=== PATIENT | female | born 1960 | race Caucasian/White ===

== ENCOUNTER → 2018-12-27 | Outpatient (CLI) | payer OTHER ==
--- NOTE | 2018-12-27 14:34 | MR ---
EXAMINATION TYPE: MR brain wo/w con DATE OF EXAM: 12/27/2018 2:17 PM COMPARISON: NONE HISTORY: Diplopia CONTRAST: Patient received 7 mL intravenous Gadavist gadolinium contrast. Multiplanar and multispin-echo imaging of the brain was performed . Pre and post contrast enhanced i mages are obtained. The ventricles, basal cisterns and sulci overlying the cerebral convexities are mildly enlarged. There is evidence of mild periventricular white matter ischemic demyelination. Remote deep white matter insults are also noted. No acute edema is seen on diffusion weighted imaging. There is no evidence for midline shift or mass effect. Acute intracranial hemorrhage or extra-axial collection is not evident. No enhancing lesions are seen. The paranasal sinuses and mastoid air cells are well-aerated. IMPRESSION: Age-related atrophic and chronic small vessel ischemic change. No acute intracranial process at this time. No enhancing lesions are seen.
== END | disposition home or self-care (01) ==
LOC: RADMRIMAIN 13:25
PROVIDERS: ATTEND Family Medicine
DX: G31.1 Senile degeneration of brain, not elsewhere classified (principal); I67.82 Cerebral ischemia
CPT/HCPCS: 70553; A9585

== ENCOUNTER → 2020-01-16 | Outpatient (CLI) | payer OTHER ==
--- NOTE | 2020-01-16 15:46 | BMR ---
EXAMINATION TYPE: MR breast BILAT wo/w con DATE OF EXAM: 01/16/2020 COMPARISON: NONE HISTORY: Lt breast saline implant deflation abnormal physical exam. History of breast implants placed 25 years ago. CONTRAST: Multiplanar, multisequence images of the breasts were acquired utilizing 7 mL intravenous Gadavist ga dolinium contrast. TECHNIQUE: A series of fat and water weighted images in the long and short axis views of both breasts are obtained in conjunction with dynamic contrast MRI with subtraction technique. Three-dimensional and additional postprocessing imaging is created on independent workstation and reviewed during [facility] interpretation of this study. FINDINGS: There is overall fairly symmetric sized of both breasts. There is scattered fibroglandular tissue bilaterally. There are subglandular bilateral implants. As suspected clinically the left breast implant shows abno rmal infolding and/or collapse. There is abnormal lobulation of the outer contour versus opposite rig ht side. Some saline noted outside the capsule in the left breast. Slight lobulation in the right fracisco ast implant is seen without abnormal infolding or collapse. T2-weighted images show no suspicious axillary adenopathy. Benign subcentimeter lymph nodes are prese nt bilaterally. There is no significant cystic change in either breast. T1-weighted images show no brooks spicious fat containing masses. Dynamic delayed postcontrast imaging shows no suspicious internal michael desiree adenopathy. There is no suspicious skin thickening seen bilaterally. No enhancing masses or pathologic enhancemen t is present. The chest wall is intact bilaterally. IMPRESSION: MRI confirmation of suspected left breast implant rupture as detailed above.
== END | disposition home or self-care (01) ==
LOC: RADMRIMAIN 14:16
PROVIDERS: ATTEND Family Medicine
DX: T85.9XXA Unspecified complication of internal prosthetic device, implant and graft, initial encounter (principal)
CPT/HCPCS: C8937; C8908; A9585; 77049

== ENCOUNTER → 2020-01-28 | Outpatient (CLI) | payer OTHER ==
[2020-01-28 14:21] VITALS: BP 159/84; PULSE 93; RESP 20; TEMP 97.7
--- NOTE | 2020-01-28 15:31 | P.GSHP ---
History of Present Illness H&P Date: 01/28/20 Chief Complaint: ruptured left breast implant Jacquie is a 59 year old white female seen for DR Bourgeois who had bilateral prepectoral saline implants in her breast placed approximately 24 years ago. Recently the left breast implant has been getting softer and an MRI of both breasts was performed. The MRI revealed findings consistent with suspected left breast implant rupture. No rupture of the right breast implant was noted. The patient has not had a bilateral mammogram for many years. The MRI however did not show any findings suspicious for cancer in either breast and was felt to be adequate as per radiology for breast evaluation. She does complain of some left chest wall/breast tenderness. She is not complaining of any nipple discharge or skin changes. She has not had any history of recent trauma or infection in her breast. Caffeine: Minimal Nicotine: Half a pack per day for 45 years Theophylline: weekly Familiy History: no cancer Hormonal History: menarche: 16 , breast fed: no, age at first : 20 menopause: complete hysterectomy at 33, done for irregular bleeding BCP: 15 years hormones: estrogen 10 years Surgical History: total hysterectomy C-sections two appendectomy Medcial History: trigeminal neurolgia anxiety/depression (sees a psychiatrist) arthritis hypothyroid Social History: nicotine: 1/2 PPD alcohol: none drugs: Marijuana occasionally - Constitutional Constitutional: Denies chills, Denies fever - EENT Comment: needs glasses Ears: bilateral: decreased hearing (? decreased), deny: tinnitus Ears, nose, mouth and throat: Denies headache, Denies sore throat - Breasts Breasts: bilateral: as per HPI - Cardiovascular Comment: Borderline hypertension - Respiratory Respiratory: Denies cough, Denies 7 - Gastrointestinal Gastrointestinal: Denies abdominal pain, Denies diarrhea, Denies nausea, Denies vomiting - Genitourinary (Female) Genitourinary: Denies dysuria, Denies hematuria - Menstruation Menstruation: Reports post hysterectomy - Musculoskeletal Comment: arthritis - Integumentary Integumentary: Denies pruritus, Denies rash - Neurological Neurological: Denies numbness, Denies weakness - Psychiatric Psychiatric: Reports anxiety, Reports depression - Endocrine Comment: hypothyroid - Hematologic/Lymphatic Comment: none - Allergic/Immunologic Allergic/Immunologic: Reports as per HPI Past Medical History History of Any Multi-Drug Resistant Organisms: None Reported Smoking Status: Current every day smoker Medications and Allergies Home Medications Medication Instructions Recorded Confirmed Type Baclofen 10 mg PO TID 01/28/20 01/28/20 History DULoxetine HCL [Cymbalta] 60 mg PO DAILY 01/28/20 01/28/20 History Naproxen 250 mg PO DAILY 01/28/20 01/28/20 History OXcarbazepine [Trileptal] 300 mg PO BID 01/28/20 01/28/20 History [place]-3/Dha/Epa/Fish Oil [Fish Oil 1 each PO HS 01/28/20 01/28/20 History 500 mg Softgel] Thyroid,Pork [[place] Thyroid] 60 mg PO DAILY 01/28/20 01/28/20 History Tofacitinib Citrate [Xeljanz] 10 mg PO DAILY 01/28/20 01/28/20 History buPROPion HCL [buPROPion HCL ER] 300 mg PO DAILY 01/28/20 01/28/20 History busPIRone HCL 10 mg PO DAILY 01/28/20 01/28/20 History clonazePAM 1 mg PO BID 01/28/20 01/28/20 History lamoTRIgine [LaMICtal] 25 mg PO DAILY 01/28/20 01/28/20 History traZODone HCL 100 mg PO DAILY 01/28/20 01/28/20 History Allergies Allergy/AdvReac Type Severity Reaction Status Date / Time codeine Allergy Vomiting Unverified 01/28/20 14:15 Penicillins Allergy Vomiting Unverified 01/28/20 14:15 strawberry Allergy Swelling Unverified 01/28/20 14:15 Surgical - Exam Vital Signs Temp Pulse Resp BP Pulse Ox 97.7 F 93 20 159/84 96 01/28/20 14:16 01/28/20 14:16 01/28/20 14:16 01/28/20 14:16 01/28/20 14:16 BMI 25.6 - General well developed, well nourished, no distress - Eyes normal ocular movement - ENT no hearing loss, no congestion - Neck no masses, trachea midline - Respiratory normal respiratory effort, clear to auscultation - Cardiovascular Heart Sounds: normal: S1, S2 - Abdomen Abdomen: soft, non tender, no guarding, no rigid, no rebound - Integumentary normal turgor - Neurologic no disoriented, no combative - Musculoskeletal normal gait - Psychiatric oriented to time, oriented to person, oriented to place, speech is normal, memory intact breast: BRA 36C on the right; smaller on the left inspection: left breast smaller than the right breast Operation: Right breast: Implant in place question capsular contraction, no dominant masses or nodules of concern in the breast Right axilla: Positive adenopathy approximately 1 cm in size appears to be shotty Left breast: Smaller than right breast, implant rupture, no dominant masses or nodules of concern Left axilla: No adenopathy of concern Results MRI of the breast reviewed with radiology/ruptured left breast implant, no parenchymal disease of concern identified in either breast Assessment and Plan Assessment: Impression: trigeminal neurolgia anxiety/depression (sees a psychiatrist) arthritis hypothyroid ruptured left breast implant ( pre-pectoral implants noted on MRI) Plan: 1. patient wishes bilateral implants to be removed 2. Medical management of medical conditions Risks and benefits of procedure discussed with the patient. She wishes to proceed. CC: Dr. Bourgeois encounter 50 minutes, > 50% of time in planning and counselling
== END | disposition home or self-care (01) ==
LOC: WWCWWP 14:06
PROVIDERS: ATTEND Surgery
DX: Z53.9 Procedure and treatment not carried out, unspecified reason (principal)

== ENCOUNTER → 2020-04-15 | Outpatient (CLI) | payer OTHER ==
[2020-04-15 15:12] VITALS: BP 175/92; PULSE 83; RESP 16; TEMP 97.9
--- NOTE | 2020-04-15 15:49 | P.PN ---
Subjective Progress Note Date: 04/15/20 Principal diagnosis: ruptured left breast implant Jacquie is a 59 year old white female seen for DR Bourgeois who had bilateral prepectoral saline implants in her breast placed approximately 24 years ago. Recently the left breast implant has been getting softer and an MRI of both breasts was performed. The MRI revealed findings consistent with suspected left breast implant rupture. No rupture of the right breast implant was noted. The patient has not had a bilateral mammogram for many years. The MRI however did not show any findings suspicious for cancer in either breast and was felt to be adequate as per radiology for breast evaluation. She does complain of some left chest wall/breast tenderness. She is not complaining of any nipple discharge or skin changes. She has not had any history of recent trauma or infection in her breast. Caffeine: Minimal Nicotine: Half a pack per day for 45 years Theophylline: weekly Familiy History: no cancer Hormonal History: menarche: 16 , breast fed: no, age at first : 20 menopause: complete hysterectomy at 33, done for irregular bleeding BCP: 15 years hormones: estrogen 10 years Surgical History: total hysterectomy C-sections two appendectomy Medcial History: trigeminal neurolgia anxiety/depression (sees a psychiatrist) arthritis hypothyroid HTN Social History: nicotine: 1/2 PPD alcohol: none drugs: Marijuana occasionally - Constitutional Constitutional: Denies chills, Denies fever - EENT Comment: needs glasses Ears: bilateral: decreased hearing (? decreased), deny: tinnitus Ears, nose, mouth and throat: Denies headache, Denies sore throat - Breasts Breasts: bilateral: as per HPI - Cardiovascular Comment: Borderline hypertension - Respiratory Respiratory: Denies cough - Gastrointestinal Gastrointestinal: Denies abdominal pain, Denies diarrhea, Denies nausea, Denies vomiting - Genitourinary (Female) Genitourinary: Denies dysuria, Denies hematuria - Menstruation Menstruation: Reports post hysterectomy - Musculoskeletal Comment: arthritis - Integumentary Integumentary: Denies pruritus, Denies rash - Neurological Neurological: Denies numbness, Denies weakness - Psychiatric Psychiatric: Reports anxiety, Reports depression - Endocrine Comment: hypothyroid - Hematologic/Lymphatic Comment: none - Allergic/Immunologic Allergic/Immunologic: Reports as per HPI Objective - Vital Signs Vital signs: Vital Signs Temp 97.9 F 11/05/20 15:07 Pulse 83 04/15/20 15:07 Resp 16 04/15/20 15:07 BP 175/92 04/15/20 15:07 Pulse Ox 96 04/15/20 15:07 Intake & Output 04/14/20 04/15/20 04/15/20 18:59 06:59 18:59 Weight 65.771 kg - Exam BMI 25.7 - Constitutional General appearance: Present: average body habitus - EENT Eyes: Present: EOMI ENT: Present: hearing grossly normal - Neck Neck: Present: normal ROM - Respiratory Respiratory: bilateral: CTA - Cardiovascular Rhythm: regular Heart sounds: normal: S1, S2 - Gastrointestinal General gastrointestinal: Present: normal bowel sounds, soft - Integumentary Integumentary: Present: normal turgor - Musculoskeletal Musculoskeletal: Present: gait normal - Psychiatric Psychiatric: Present: A&O x's 3, appropriate affect, intact judgment & insight - Additional findings Additional findings: Breast exam: BRA: 36C on the right, left smaller inspection: left breast smaller than the right palpation right breast:implant in place question of capsular contraction right axilla: shotty adenopathy left breast: implant rupture, no dominate masses or nodules of concern left axilla: no adenopathy of concern Assessment and Plan Assessment: Impression: trigeminal neurolgia anxiety/depression arthritis hypothyroid ruptured left breast implant Plan: 1. removal of bilateral implants 2. medical clearance 3. stop smoking prior to procedure 4. Clearance from Dr. Vela We have discussed her seeing a plastic surgeon and she declined at this time. She is not interested in having implants replaced at this time. She understands that she will have loss of volume and still wishes that these be removed. She understands the risk and benefits and wishes to proceed. Risks include but are not limited to bleeding, infection, reaction to the anesthetic. CC: Dr. Bourgeois encounter 30 minutes, > 50% of time in planning and counselling
== END | disposition home or self-care (01) ==
LOC: WWCWWP 14:41
PROVIDERS: ATTEND Surgery
DX: Z53.9 Procedure and treatment not carried out, unspecified reason (principal)

== ENCOUNTER 2020-05-18 10:20 | Day surgery (SDC) | payer OTHER ==
[2020-05-14 14:25] VITALS: BMI 24.7
--- NOTE | 2020-05-14 15:41 | P.PN ---
Subjective Progress Note Date: 05/14/20 Principal diagnosis: Ruptured left breast implant ruptured left breast implant Jacquie is a 59 year old white female seen for DR Bourgeois who had bilateral prepectoral saline implants in her breast placed approximately 24 years ago. Recently the left breast implant has been getting softer and an MRI of both breasts was performed. The MRI revealed findings consistent with suspected left breast implant rupture. No rupture of the right breast implant was noted. The patient has not had a bilateral mammogram for many years. The MRI however did not show any findings suspicious for cancer in either breast and was felt to be adequate as per radiology for breast evaluation. She does complain of some left chest wall/breast tenderness. She is not complaining of any nipple discharge or skin changes. She has not had any history of recent trauma or infection in her breast. Caffeine: Minimal Nicotine: Half a pack per day for 45 years Theophylline: weekly Familiy History: no cancer Hormonal History: menarche: 16 , breast fed: no, age at first : 20 menopause: complete hysterectomy at 33, done for irregular bleeding BCP: 15 years hormones: estrogen 10 years Surgical History: total hysterectomy C-sections two appendectomy Medcial History: trigeminal neurolgia anxiety/depression (sees a psychiatrist) arthritis hypothyroid HTN Social History: nicotine: 1/2 PPD alcohol: none drugs: Marijuana occasionally - Constitutional Constitutional: Denies chills, Denies fever - EENT Comment: needs glasses Ears: bilateral: decreased hearing (? decreased), deny: tinnitus Ears, nose, mouth and throat: Denies headache, Denies sore throat - Breasts Breasts: bilateral: as per HPI - Cardiovascular Comment: Borderline hypertension - Respiratory Respiratory: Denies cough - Gastrointestinal Gastrointestinal: Denies abdominal pain, Denies diarrhea, Denies nausea, Denies vomiting - Genitourinary (Female) Genitourinary: Denies dysuria, Denies hematuria - Menstruation Menstruation: Reports post hysterectomy - Musculoskeletal Comment: arthritis - Integumentary Integumentary: Denies pruritus, Denies rash - Neurological Neurological: Denies numbness, Denies weakness - Psychiatric Psychiatric: Reports anxiety, Reports depression - Endocrine Comment: hypothyroid - Hematologic/Lymphatic Comment: none - Allergic/Immunologic Allergic/Immunologic: Reports as per HPI Objective - Vital Signs Vital signs: Intake & Output 05/13/20 05/14/20 05/14/20 18:59 06:59 18:59 Weight 63.503 kg - Exam BMI 24.8 - Constitutional General appearance: Present: average body habitus - EENT Eyes: Present: EOMI ENT: Present: hearing grossly normal - Neck Neck: Present: normal ROM - Respiratory Respiratory: bilateral: CTA - Cardiovascular Rhythm: regular Heart sounds: normal: S1, S2 - Gastrointestinal General gastrointestinal: Present: soft - Integumentary Integumentary: Present: normal turgor - Musculoskeletal Musculoskeletal: Present: gait normal - Psychiatric Psychiatric: Present: A&O x's 3, appropriate affect, intact judgment & insight - Additional findings Additional findings: breast exam: Prior: 30 6C on the right, left smaller Inspection: Left breast smaller than right Palpation: Right breast: Implant in place question of capsular contraction Right axilla: Shoddy adenopathy Left breast: Implant rupture no dominant masses or nodules of concern Left axilla: No adenopathy of concern Assessment and Plan Assessment: Impression: 1. Right abdominal neuralgia Anxiety/depression Arthritis Hypothyroid Ruptured left breast implant Plan: 1. Removal of bilateral implants 2. Medical clearance 3. Stop smoking prior to procedure 4. Clearance from Dr. Vela We have discussed her seeing a plastic surgeon and she declined at this time. She is not interested in having implants replaced at this time. She understands she will of loss of volume and still wishes to have these removed. She understands the risks and benefits and wishes to proceed. Risks include but are not limited to bleeding, infection, reaction to the anesthetic. Cc: Dr. Bourgeois
[~2020-05-18 10:20] MED LIST: DEXAMETHASONE SOD PHOSPHATE 4 MG/ML 1 ML VIAL IV ONE; LACTATED RINGERS 1,000 ML IV SCH; LIDOCAINE 1% (10MG/ML) FOR IV START INTRADERMA PRN; ONDANSETRON 4 MG/2 ML VIAL IVP ONE; SCOPOLAMINE 1.5MG/72HR PATCH TRANSDERM ONE
[2020-05-18] MEDS ORDERED: MIDAZOLAM 2 MG/2 ML VIAL IVP ONE (12:10)
[2020-05-18] MEDS ORDERED: MIDAZOLAM 2 MG/2 ML VIAL ONE (12:34)
[2020-05-18] MEDS ORDERED: ePHEDrine SULFATE/0.9% NACL/PF 50 MG/5 ML SYRINGE IV ONE (12:34)
[2020-05-18] MEDS ORDERED: PROPOFOL 10 MG/ML 20 ML VIAL IV ONE (12:34)
[2020-05-18] MEDS ORDERED: HYDROmorphone (PF) 1 MG/ML ONE (12:34)
[2020-05-18] MEDS ORDERED: LIDOCAINE 1% INJ 10MG/ML (20 ML MDV) ONE (12:34)
[2020-05-18] MEDS ORDERED: ROCURONIUM 10 MG/ML (10 ML VIAL) IV ONE (12:34)
[2020-05-18] MEDS ORDERED: HEPARIN SODIUM,PORCINE 5,000 UNIT/ML 1 ML VIAL ONE (12:34)
[2020-05-18] MEDS ORDERED: fentaNYL (PF) 50 MCG/ML 2 ML AMP ONE (12:34)
[2020-05-18] MEDS ORDERED: SUCCINYLCHOLINE CHLORIDE 100 MG/5 ML SYR IV ONE (12:34)
[2020-05-18] MEDS ORDERED: SODIUM CHLORIDE 0.9% 50 ML with CLINDAMYCIN 600 MG IV ONE ×2 (12:36)
--- NOTE | 2020-05-18 14:12 | P.OP ---
Date of Procedure: 05/18/20 Preoperative Diagnosis: Ruptured left breast prepectoral implant, capsular contraction right breast prepectoral implant Postoperative Diagnosis: Same Procedure(s) Performed: removal of Bilateral prepectoral breast implants and capsules; each one approximately 9 x 6 cm in size Anesthesia: VICKY Surgeon: Rocío Malagon Estimated Blood Loss (ml): 20 IV fluids (ml): 400 Pathology: other (Bilateral breast implants and capsules) Condition: stable Disposition: same day Indications for Procedure: Ruptured left breast implant, capsule formation right breast implant with pain Operative Findings: Ruptured left breast implant, capsule present, contraction right breast implant with calcified capsules bilaterally Description of Procedure: Jacquie is a 59-year-old white female who presented with a ruptured left breast prepectoral implant and painful contracture of a right breast implant. The implants were approximately 25-30 years old. The patient wished to have the implants removed. Risks and benefits of the procedure were discussed with the patient she understood and wished to proceed. She did not want new implants placed. The patient was taken to the operating room and following induction of anesthesia the left breast and right breast were prepped and draped in a sterile fashion. The left breast was approached initially. An incision was made just above the inframammary ridge. This was approximately 6 cm in size. Dissection was performed through the subcutaneous tissue and breast tissue to the implant on the left side. The capsule was identified and dissection was performed around the capsule. It was prepectoral however, there were extensive adhesions between the capsule and the pectoralis muscle. These were taken down using electrocautery device as well as the Harmonic scalpel. The capsule and implant were completely dissected free and removed. The implant was approximately 9 x 6 cm. Following this the cavity was well irrigated. Surgicel in powder form was placed after we determined there was no active bleeding. A LO drain was placed. The subcutaneous tissues were closed using 3-0 Vicryl suture, the skin was closed using a 4-0 Monocryl, Steri-Strips were applied. The right breast was approached in similar fashion. A 6 cm incision at the inframammary ridge was performed. This was dissected onto the capsule of the implant. This was carefully dissected away from adhesions on the pectoralis muscle and breas tissue surrounding the Capsule. After this had been dissected free the implant was extruded. The implant size was approximately 9 x 6 cm. The capsule was removed with the implant. The capsule was calcified. The wound was well irrigated. After we assured that hemostasis was attained Surgicel in powder form was placed. A LO drain was placed and secured using a nylon suture. Nylon sutures were used to close the subcutaneous tissue. The skin was closed using 4-0 Monocryl. Steri-Strips were applied. The patient tolerated procedure in stable condition. All instrument and sponge counts were correct at the end of the case. The capsules and implants were sent to pathology.
--- NOTE | 2020-05-18 14:16 | P.DS ---
Providers Attending physician: Rocío Malagon Primary care physician: Silvano Bourgeois Plan - Discharge Summary Discharge Rx Participant: No New Discharge Prescriptions: No Action Baclofen 20 mg PO QAM buPROPion HCL [buPROPion HCL ER] 300 mg PO QAM busPIRone HCL 15 mg PO HS clonazePAM 2 mg PO HS DULoxetine HCL [Cymbalta] 60 mg PO BID lamoTRIgine [LaMICtal] 20 mg PO QAM Naproxen 250 mg PO BID OXcarbazepine [Trileptal] 600 mg PO QAM Thyroid,Pork [[place] Thyroid] 60 mg PO QAM Tofacitinib Citrate [Xeljanz] 11 mg PO QAM traZODone HCL 200 mg PO HS OXcarbazepine [Trileptal] 1,200 mg PO HS Baclofen 10 mg PO HS lamoTRIgine [LaMICtal] 10 mg PO HS Lisinopril [Prinivil] 20 mg PO DAILY Discharge Medication List Baclofen 20 mg PO QAM 01/28/20 [History] DULoxetine HCL [Cymbalta] 60 mg PO BID 01/28/20 [History] Naproxen 250 mg PO BID 01/28/20 [History] OXcarbazepine [Trileptal] 600 mg PO QAM 01/28/20 [History] Thyroid,Pork [[place] Thyroid] 60 mg PO QAM 01/28/20 [History] Tofacitinib Citrate [Xeljanz] 11 mg PO QAM 01/28/20 [History] buPROPion HCL [buPROPion HCL ER] 300 mg PO QAM 01/28/20 [History] busPIRone HCL 15 mg PO HS 01/28/20 [History] clonazePAM 2 mg PO HS 01/28/20 [History] lamoTRIgine [LaMICtal] 20 mg PO QAM 01/28/20 [History] traZODone HCL 200 mg PO HS 01/28/20 [History] Baclofen 10 mg PO HS 04/23/20 [History] Lisinopril [Prinivil] 20 mg PO DAILY 04/23/20 [History] OXcarbazepine [Trileptal] 1,200 mg PO HS 04/23/20 [History] lamoTRIgine [LaMICtal] 10 mg PO HS 04/23/20 [History] Follow up Appointment(s)/Referral(s): Rocío Malagon MD [STAFF PHYSICIAN] - 3 Days Activity/Diet/Wound Care/Special Instructions: Do not drive for 24 hours from discharge Please teach patient drain care, drain and recorded output twice a day and as needed may Shower after 48 hours Discharge Disposition: HOME SELF-CARE
[2020-05-18] MEDS: HYDROmorphone 0.5 MG/0.5 ML SYRINGE IVP PRN ×4 (14:27→14:53)
[2020-05-18 14:37] VITALS: TEMP 96.8
[2020-05-18 15:06] VITALS: RESP 16
[2020-05-18] MEDS ORDERED: fentaNYL (PF) 50 MCG/ML 2 ML AMP IV ONE (15:10)
[2020-05-18] MEDS ORDERED: HYDROcodone/APAP 5-325MG 1 EACH TAB ONE (16:05)
[2020-05-18] MEDS ORDERED: HYDROcodone/APAP 5-325MG 1 EACH TAB PO ONE (16:07)
[2020-05-18 16:53] VITALS: BP 134/81; PULSE 87
== END 2020-05-18 17:05 | disposition home or self-care (01) ==
LOC: OR 10:20
PROVIDERS: ATTEND Surgery
DX: T85.43XA Leakage of breast prosthesis and implant, initial encounter (principal); T85.44XA Capsular contracture of breast implant, initial encounter; Z90.710 Acquired absence of both cervix and uterus; Z98.890 Other specified postprocedural states; F41.9 Anxiety disorder, unspecified; F32.9 Major depressive disorder, single episode, unspecified; M06.9 Rheumatoid arthritis, unspecified; E03.9 Hypothyroidism, unspecified; I10 Essential (primary) hypertension; G50.0 Trigeminal neuralgia; R03.0 Elevated blood-pressure reading, without diagnosis of hypertension; F17.200 Nicotine dependence, unspecified, uncomplicated; Z79.890 Hormone replacement therapy; Z79.899 Other long term (current) drug therapy; Z88.5 Allergy status to narcotic agent; Z88.0 Allergy status to penicillin; Z91.018 Allergy to other foods
CPT/HCPCS: 88300; 19371; J2250; J1644; J1100; J2405; J2001; J3010; J1170 ×2; J0330; J2704

== ENCOUNTER → 2020-05-21 | Outpatient (CLI) | payer OTHER ==
[2020-05-21 09:52] VITALS: BP 153/91; PULSE 80; RESP 20; TEMP 98
--- NOTE | 2020-05-21 10:12 | P.PN ---
Progress Note - Text Progress Note Date: 05/21/20 Jacquie is a 59 year old white female status post bilateral implant removal on 05-18-20. She is doing well at this time. Patient has bilateral drains in place. She has not complaints at this time. PE: lungs wheezing at bases incisions clean and dry LO nicole aprox. 40 cc/ 24 hours Plan: 1. follow up 1 week 2. continue drain care
== END | disposition home or self-care (01) ==
LOC: WWCWWP 09:41
PROVIDERS: ATTEND Surgery
DX: Z53.9 Procedure and treatment not carried out, unspecified reason (principal)

== ENCOUNTER → 2020-05-28 | Outpatient (CLI) | payer OTHER ==
--- NOTE | 2020-05-28 12:47 | P.PN ---
Progress Note - Text Progress Note Date: 05/28/20 Jacquie is a 59 year old white female status post bilateral implant removal on 05-18-20. She is doing well at this time. Patient has bilateral drains in place. She has not complaints at this time. PE: heart: S1S2 lungs wheezing at bases incisions clean and dry LO nicole less than 10 cc/day Plan: 1. dc drains 2. bilateral mammogram in 6 months with appointment at that time Both drains were removed CC: Dr. Bourgeois
== END | disposition home or self-care (01) ==
DX: Z53.9 Procedure and treatment not carried out, unspecified reason (principal)

== ENCOUNTER → 2020-11-19 | Outpatient (CLI) | payer OTHER ==
[2020-11-19 14:59] VITALS: BP 128/82; PULSE 86; RESP 16; TEMP 98.2
--- NOTE | 2020-11-19 15:09 | P.PN ---
Subjective Progress Note Date: 11/19/20 Principal diagnosis: breast pain Jacquie is a 59 year old white female seen for DR Bourgeois who had bilateral prepectoral saline implants in her breast placed approximately 24 years ago. Recently the left breast implant has been getting softer and an MRI of both breasts was performed. The MRI revealed findings consistent with suspected left breast implant rupture. No rupture of the right breast implant was noted. The patient has not had a bilateral mammogram for many years. The MRI however did not show any findings suspicious for cancer in either breast and was felt to be adequate as per radiology for breast evaluation. She does complain of some left chest wall/breast tenderness. She did not complain of any nipple discharge or skin changes. There was not any history of recent trauma or infection in her breast. On she underwent bilateral implant removal. The implant on the left was partially collapsed and the implant on the right had the external surface covered in a firm crust. Postprocedure the patient did well initially but is now complaining of bilateral nipple discomfort. She is complaining of pain in both nipples, the right side is worse than the left. This has been persistent since the implants have been removed. She states that there is improvement in the discomfort in her breast but she still has discomfort at the nipples. The right nipple was exposed to cold and she had pain when this occurred. She has not noted any lumps masses or nodules in her breast. Caffeine: Minimal Nicotine: Half a pack per day for 45 years Theophylline: weekly Familiy History: no cancer Hormonal History: menarche: 16 , breast fed: no, age at first : 20 menopause: complete hysterectomy at 33, done for irregular bleeding BCP: 15 years hormones: estrogen 10 years Surgical History: total hysterectomy C-sections two appendectomy removal of bilateral breast implants Medcial History: trigeminal neurolgia anxiety/depression (sees a psychiatrist) arthritis hypothyroid Social History: nicotine: 1/2 PPD alcohol: none drugs: Marijuana occasionally - Constitutional Constitutional: Denies chills, Denies fever - EENT Comment: needs glasses Ears: bilateral: decreased hearing (? decreased), deny: tinnitus Ears, nose, mouth and throat: Denies headache, Denies sore throat - Breasts Breasts: bilateral: as per HPI - Cardiovascular Comment: Borderline hypertension - Respiratory Respiratory: Denies cough, - Gastrointestinal Gastrointestinal: Denies abdominal pain, Denies diarrhea, Denies nausea, Denies vomiting - Genitourinary (Female) Genitourinary: Denies dysuria, Denies hematuria - Menstruation Menstruation: Reports post hysterectomy - Musculoskeletal Comment: arthritis - Integumentary Integumentary: Denies pruritus, Denies rash - Neurological Neurological: Denies numbness, Denies weakness - Psychiatric Psychiatric: Reports anxiety, Reports depression - Endocrine Comment: hypothyroid - Hematologic/Lymphatic Comment: none - Allergic/Immunologic Allergic/Immunologic: Reports as per HPI Objective - Vital Signs Vital signs: Vital Signs Temp 98.2 F 11/19/20 14:42 Pulse 86 11/19/20 14:42 Resp 16 11/19/20 14:42 BP 128/82 11/19/20 14:42 Pulse Ox 96 11/19/20 14:42 Intake & Output 11/18/20 11/19/20 11/19/20 18:59 06:59 18:59 Weight 61.235 kg - Exam BMI 23.9 - Constitutional General appearance: Present: average body habitus - EENT Eyes: Present: EOMI ENT: Present: hearing grossly normal - Respiratory Details: bilateral wheezing - Cardiovascular Rhythm: regular Heart sounds: normal: S1, S2 - Integumentary Integumentary: Present: normal turgor - Musculoskeletal Musculoskeletal: Present: gait normal - Psychiatric Psychiatric: Present: A&O x's 3, appropriate affect, intact judgment & insight - Additional findings Additional findings: Breast Exam: BRA: sports bra M Inspection: Ptosis grade 2 bilateral Palpation: Right breast: Multi-positional exam fibrocystic changes, no dominant masses or nodules of concern Right axilla: No adenopathy of concern Left breast: Multiple positional exam fibrocystic changes no dominant masses or nodules of concern Left axilla: No adenopathy of concern Assessment and Plan Assessment: Impression: 1. Fibrocystic breast changes 2. Recent removal of bilateral breast implants with some tenderness at the nipple areolar complexes 3. No dominant masses or nodules of concern in either breast Plan: 1. Patient is a bilateral mammogram 2. Patient to follow up after bilateral mammogram 3. Breast discomfort felt to be inflammatory/fibrocystic in nature nothing which would warrant interventional biopsy I reassured the patient 4. Nonsteroidal anti-inflammatory medication as needed for the nipple discomfort Cc: Dr. Bourgeois
== END ==
LOC: WWCWWP 14:30
PROVIDERS: ATTEND Surgery
DX: N60.11 Diffuse cystic mastopathy of right breast (principal); N60.12 Diffuse cystic mastopathy of left breast; F17.210 Nicotine dependence, cigarettes, uncomplicated; E03.9 Hypothyroidism, unspecified; F32.9 Major depressive disorder, single episode, unspecified; F41.9 Anxiety disorder, unspecified; Z88.5 Allergy status to narcotic agent; Z88.0 Allergy status to penicillin; Z91.018 Allergy to other foods

== ENCOUNTER → 2020-12-03 | Outpatient (CLI) | payer OTHER ==
--- NOTE | 2020-12-03 13:48 | USB ---
EXAMINATION TYPE: US breast limited RT DATE OF EXAM: 12/03/2020 COMPARISON: Mammogram same date CLINICAL HISTORY: R92.8 ABNORMAL MAMMOGRAM. Findings: Targeted right breast ultrasound was performed from 8:00 through 11:00 and in the retroareolar and ax illary tail regions. In the right breast at 9:00, there is a 1.2 x 0.5 x 1.2 cm complex cystic mass which corresponds well in size, location and morphology to the asymmetry seen on mammogram and is suspicious. Ultrasound-gu ided biopsy is recommended. In the right axilla, there is a normal-appearing lymph node. IMPRESSION: 1. Ultrasound-guided biopsy is recommended for the complex cystic mass in the right breast at 9:00. 2. Stereotactic biopsy is recommended for the grouping of outer right breast on mammogram. BI-RADS 4, suspicious.
--- NOTE | 2020-12-03 14:51 | MM ---
Reason for exam: clinical finding. History: Patient is postmenopausal. Implant Removal of both breasts, May 2020. Took hormonal contraceptives for 7 years beginning at age 18. Took estrogen for 6 years beginning at age 27. Physical Findings: Nurse did not find any significant physical abnormalities on exam. MG 3D Diag Mammo W/Cad LOUISA Bilateral CC and MLO view(s) were taken. No prior studies available for comparison. There are scattered fibroglandular densities. There is a mass in the right upper outer quadrant and ultrasound is recommended. There is a 0.2 x 0.2 x 0.2cm grouping of fine heterogeneous calcifications in the right outer central breast within a larger area of calcifications and stereotactic biopsy is recommended. These results were verbally communicated with the patient and result sheet given to the patient on 12/03/20. ASSESSMENT: Incomplete: need additional imaging evaluation, BI-RAD 0 RECOMMENDATION: Ultrasound of the right breast.
== END | disposition home or self-care (01) ==
LOC: RADMAMWWP 12:00
PROVIDERS: ATTEND Surgery
DX: N60.01 Solitary cyst of right breast (principal); R92.1 Mammographic calcification found on diagnostic imaging of breast; Z78.0 Asymptomatic menopausal state
CPT/HCPCS: 77066; 76642; G0279; 77062

== ENCOUNTER → 2020-12-20 | Day surgery (SDC) | payer OTHER ==
[2020-12-20 10:32] VITALS: RESP 16
[2020-12-20 11:41] VITALS: BP 131/84; PULSE 65; TEMP 98.2
--- NOTE | 2020-12-20 13:12 | USB ---
Right breast ultrasound INDICATION: Previously seen complex cystic lesion in the right breast at 9:00 COMPARISON: 12/03/2020 FINDINGS: Targeted right breast ultrasound was performed at 9:00. The previously noted complex cystic lesion no w appears as a cluster of cysts and is probably benign. IMPRESSION: Likely cluster of cysts in the right breast at 9:00. Management is dependent upon biopsy results of c alcifications. BI-RADS 3, probably benign.
--- NOTE | 2020-12-20 13:43 | MM ---
EXAMINATION TYPE: MG stereo VAD BX RT DATE OF EXAM: 12/20/2020 COMPARISON: 12/03/2020 CLINICAL HISTORY: Right breast calcifications TECHNIQUE: Stereotactic guided core biopsy of right breast. FINDINGS: The procedure of stereotactic guided core biopsy was explained to the patient. Benefits, alternatives, and risks were discussed. An informed consent was then obtained. The shortness pathway for biopsy was chosen. Shortness pathway was lateral approach. Stereo pair imaging was obtained for localization. The patient was prepped in the normal sterile fashion. Lidocaine was administered in the skin and subcutaneous tissues for local analgesia. Lidocaine with epinephrine was administered into the deeper tissues for analgesia. A 12-gauge biopsy device was inserted into the breast. [facility] imaging determined biopsy device was at the level of the suspicious calcifications. 6 core biopsy specimens were obtained. Specimen radiograph demonstrates calcifications within the specimens. A biopsy clip was placed and imaging confirmed deployment. The patient tolerated the procedure well without any immediate complication. The patient was kept in the radiology department for short stay after the procedure and then discharged home in stable condition. Targeted calcifications are identified in specimen mammogram. Post biopsy mammogram was not performed but will be performed on when the patient returns to this site for follow-up. IMPRESSION: SUCCESSFUL, UNCOMPLICATED STEREOTACTIC GUIDED CORE BIOPSY OF AREA OF CONCERN IN THE right BREAST, FULL PATHOLOGY RESULTS TO FOLLOW. Pathology Results: Benign RIGHT BREAST, CORE BIOPSY: Fibrocystic change with apocrine metaplasia and focal calcification. Focal non-caseating granulomatous inflammation with associated foreign material, favor foreign body-type reaction to possible suture or implant material (breast implants removed 2019, see case [id number]). Recommendation Follow up mammogram and ultrasound of the right breast in 6 months. (for likely cluster of cysts at 9 o'clock) MTDD
== END ==
LOC: RADUSWWP 09:45
PROVIDERS: ATTEND Surgery
DX: N60.11 Diffuse cystic mastopathy of right breast (principal); N60.81 Other benign mammary dysplasias of right breast; R92.1 Mammographic calcification found on diagnostic imaging of breast; R92.8 Other abnormal and inconclusive findings on diagnostic imaging of breast; Z88.5 Allergy status to narcotic agent; Z88.0 Allergy status to penicillin; Z91.018 Allergy to other foods
CPT/HCPCS: 88305; 19081; 76641; A4648; J2001

== ENCOUNTER → 2020-12-23 | Outpatient (CLI) | payer OTHER ==
--- NOTE | 2020-12-23 07:57 | MM ---
Postprocedure right diagnostic mammogram INDICATION: Follow-up stereotactic biopsy 12/20/2020 Lateral and cc mammogram views of the right breast were obtained. Findings: There are post procedure changes seen in the expected location of the right breast but the clip migra timbo 6 cm laterally. Scattered fibroglandular tissue is seen. IMPRESSION: Status post right stereotactic biopsy. Pathology results are pending.
[2020-12-23 08:05] VITALS: BP 129/83; PULSE 88; RESP 12; TEMP 98.1
--- NOTE | 2020-12-23 08:12 | P.PN ---
Subjective Progress Note Date: 12/23/20 Principal diagnosis: Fibrocystic changes Jacquie is a 59-year-old white female status post 2 tactic core biopsy right breast [place] [id number]. Pathology revealed fibrocystic changes with apocrine metaplasia and focal calcification. This was felt to be benign and concordant. Postprocedure radiograph revealed that the clip had migrated approximately 6 cm laterally from the biopsy. This was reviewed with the radiologist and it was felt that the area of concern had been biopsied and the clip migration was most likely along the path report had been placed. It was felt that she would be okay to have a repeat right breast mammogram and ultrasound in 6 months. The patient tolerated the procedure without difficulty. Objective - Vital Signs Vital signs: Vital Signs Temp 98.1 F 12/23/20 07:52 Pulse 88 12/23/20 07:52 Resp 12 12/23/20 07:52 BP 129/83 12/23/20 07:52 Pulse Ox 96 12/23/20 07:52 Intake & Output 12/22/20 12/23/20 12/23/20 18:59 06:59 18:59 Weight 58.967 kg - Constitutional General appearance: Present: cooperative - EENT Eyes: Present: EOMI ENT: Present: hearing grossly normal - Neck Neck: Present: normal ROM - Respiratory Details: Wheezing left base, right lung clear - Cardiovascular Heart sounds: normal: S1, S2 - Integumentary Integumentary Comment(s): Right breast stereo biopsy area clean and dry no evidence of infection or hematoma, mild ecchymosis Integumentary: Present: normal turgor - Musculoskeletal Musculoskeletal: Present: gait normal - Psychiatric Psychiatric: Present: A&O x's 3, appropriate affect, intact judgment & insight Assessment and Plan Assessment: Impression: 1. Fibrocystic changes right breast Plan: 1. Right breast mammogram and ultrasound in 6 months with physician exam at that time CC: Dr. Bourgeois
== END ==
LOC: WWCWWP 07:35
PROVIDERS: ATTEND Surgery
DX: N60.11 Diffuse cystic mastopathy of right breast (principal); Z88.0 Allergy status to penicillin; Z88.5 Allergy status to narcotic agent; Z91.018 Allergy to other foods

== ENCOUNTER → 2020-12-23 | Outpatient (CLI) | payer OTHER | END | disposition home or self-care (01) | LOC: RADMAMWWP 07:30 | PROVIDERS: ATTEND Surgery | DX: Z53.9 Procedure and treatment not carried out, unspecified reason (principal) ==

== ENCOUNTER → 2024-03-20 | Outpatient (CLI) | payer OTHER ==
--- NOTE | 2024-03-26 22:53 | CTL ---
EXAMINATION TYPE: CT Low Dose Lung DATE OF EXAM ORDERED: 03/20/2024 HISTORY: 63-year-old female current smoker with 20 pack-year history, Z1 2.2, F1 7.10. Lung cancer sc reening CT DLP: 62.[address] CTDI: 1.8 mGy Automated exposure control for dose reduction was used. SCREENING VISIT: Baseline COMPARISON: None TECHNIQUE: Low dose computed tomography scan was performed through the chest at 1 mm thick sections a nd reconstructed images in multiple planes at 1 mm and [address] DIAGNOSTIC QUALITY: Satisfactory FINDINGS: The heart is normal size without pericardial effusion. LAD and RCA coronary calcifications are presen t. Aorta normal caliber with conventional arch vessel branching anatomy. No thoracic lymphadenopathy by CT size criteria. Mild to moderate diffuse bronchial wall thickening. Biapical pleural parenchymal scarring. Minimal em physematous change. Numerous scattered benign calcified granulomas. No consolidation or pleural effus ion. A 4 mm and adjacent 3 mm pulmonary nodule at the left mid lung, axial image 138 and 142. 4 mm left lower lobe pulmonary nodule, axial image 193. Otherwise, no additional suspicious pulmonary nodule is identified on baseline screening. Visualized upper abdomen shows an anterior hilar splenule. Bones: No osseous destructive process. IMPRESSION: 1. Lung RADS 2, benign. Evidence of prior granulomatous disease as well as a few noncalcified pulmona ry nodules measuring up to 4 mm on baseline screening. 2. COPD with mild emphysema. Recommend smoking cessation. 3. Mild LAD and RCA coronary calcifications. CT LUNG RAD AND CT CHEST RECOMMENDATION: Lung-Rad 2 Benign Appearance or Behavior: Continue annual sc reening with LDCT in 12 months. S Modifier (other clinically significant findings): None [facility], , 03/26/2024 10:51 PM
== END | disposition home or self-care (01) ==
LOC: RADCTMAIN 16:09
PROVIDERS: ATTEND Family Medicine
DX: Z12.2 Encounter for screening for malignant neoplasm of respiratory organs (principal); F17.210 Nicotine dependence, cigarettes, uncomplicated; J44.9 Chronic obstructive pulmonary disease, unspecified; J43.9 Emphysema, unspecified
CPT/HCPCS: 71271